=== PATIENT | female | born 1995 | race Native Hawaiian/Other Pacific Islander ===

== ENCOUNTER 2017-02-17 08:53 | Inpatient (IN) | payer MEDICAID ==
[~2017-02-17] VITALS: Ht 180.3 cm; Wt 122.5 kg
[~2017-02-17 08:53] MED LIST: GABA-531 PO; QUET100T PO
[2017-02-17] MEDS ORDERED: ONDA4 PO (09:25)
[2017-02-17 09:59] LABS: BASOPHILS % (AUTO) 0.9 % (0.0-2.0); EOSINOPHILS # (AUTO) 0.06 K/uL (0.00-0.70); EOSINOPHILS % (AUTO) 0.51 % (1.0-6.0); HEMATOCRIT 42.6 % (36-46); HEMOGLOBIN 14.2 g/dL (12.0-16.0); LYMPHOCYTES % (AUTO) 17.4 % (22.0-44.0); MEAN CORPUSCULAR HEMOGLOBIN 28.9 pg (26.0-34.0); MEAN CORPUSCULAR HGB CONC 33.4 G/dL (31.0-37.0); MEAN CORPUSCULAR VOLUME 86 fL (80-100); MONOCYTES # (AUTO) 0.6 K/uL (0.1-1.0); MONOCYTES % (AUTO) 5.5 % (2.0-9.0); NEUTROPHILS # (AUTO) 8.5 K/uL (1.8-7.7); NEUTROPHILS % (AUTO) 75.7 % (40.0-70.0); PLATELET COUNT (AUTO) 426 K/uL (150-450); RED BLOOD CELL COUNT(AUTO) 4.93 MIL/uL (4.00-5.20); RED CELL DISTRIBUTION WIDTH 13.6 % (11.5-14.5); WHITE BLOOD COUNT (AUTO) 11.3 K/uL (4.5-11.0)
[2017-02-17] MEDS ORDERED: DiphenhydrAMINE HCL 50 MG/ML VIAL IM ONE (10:00)
[2017-02-17] MEDS ORDERED: HALOPERIDOL LACTATE 5 MG/ML VIAL IM ONE (10:00)
[2017-02-17] MEDS ORDERED: LORazepam 2 MG/ML VIAL IM ONE (10:00)
[2017-02-17 10:14] LABS: ANION GAP 13 mmol/L (8-16); CALCIUM, TOTAL 9.7 mg/dL (8.8-10.5); CARBON DIOXIDE 26 mmol/L (22-29); CHLORIDE 104 mmol/L (98-107); CREATININE 0.94 mg/dL (0.60-1.30); GLOMERULAR FILTR. RATE CALC > 60 mL/min (>60); POTASSIUM 3.5 mmol/L (3.5-5.1); SODIUM SERUM 143 mmol/L (136-145); UREA NITROGEN, BLOOD 15 mg/dL (7-18)
[2017-02-17 10:19] LABS: ALANINE AMINOTRANSFERASE 27 U/L (12-78); ALBUMIN 4.6 g/dL (3.4-5.0); ASPARTATE AMINOTRANSFERASE 22 U/L (15-37); BILIRUBIN,TOTAL 0.5 mg/dL (0.1-1.0); TOTAL PROTEIN, SERUM 8.9 g/dL (6.4-8.2)
[2017-02-17] MEDS ORDERED: LORazepam 2 MG TABLET PO PRN (10:30)
[2017-02-17] MEDS ORDERED: ZOLPIDEM TARTRATE 10 MG TABLET PO PRN (10:30)
[2017-02-17] MEDS ORDERED: HALOPERIDOL 5 MG TABLET PO PRN (10:30)
[2017-02-17] MEDS ORDERED: INFLUENZA VIRUS VACCINE QVS 2016-17 (3YR+)/PF 60 MCG/0.5 ML SYRINGE IM ONE (16:30)
[2017-02-17 18:02] VITALS: BP 100/59
[2017-02-18 06:10] VITALS: BP 125/64
[2017-02-18] MEDS: ONDANSETRON HCL 4 MG TABLET PO SCH ×2 (08:11→09:00)
[2017-02-18] MEDS ORDERED: GABA-533 PO (12:24)
[2017-02-18] MEDS: QUEtiapine FUMARATE 100 MG TABLET PO SCH ×2 (13:00→16:18)
[2017-02-18] MEDS: GABAPENTIN 400 MG CAPSULE PO SCH ×2 (13:00→16:18)
[2017-02-18 16:11] VITALS: BP 106/60
[2017-02-18] MEDS ORDERED: ACETAMINOPHEN 325 MG TABLET PO PRN (23:15)
[2017-02-18] MEDS ORDERED: IBUPROFEN 400 MG TABLET PO PRN (23:15)
[2017-02-19 08:23] VITALS: BP 125/74
[2017-02-19] MEDS: ONDANSETRON HCL 4 MG TABLET PO SCH (09:00)
[2017-02-19] MEDS: GABAPENTIN 400 MG CAPSULE PO SCH ×3 (09:00→16:35)
[2017-02-19] MEDS: QUEtiapine FUMARATE 100 MG TABLET PO SCH ×3 (09:00→16:35)
[2017-02-19 16:16] VITALS: BP 141/85
[2017-02-20 06:28] VITALS: BP 125/72
[2017-02-20 08:43] LABS: HEMOGLOBIN A1C 5.4 % (4.5-6.2)
[2017-02-20 08:44] VITALS: BP 118/67
[2017-02-20] MEDS: GABAPENTIN 400 MG CAPSULE PO SCH ×3 (09:00→16:06)
[2017-02-20] MEDS: ONDANSETRON HCL 4 MG TABLET PO SCH (09:00)
[2017-02-20 09:01] LABS: CHOL/HDL RATIO 3.4 (3.9-5.7); THYROID STIMULATING HORMONE 0.73 uIU/mL (0.36-3.74)
[2017-02-20] MEDS: QUEtiapine FUMARATE 100 MG TABLET PO SCH ×3 (09:33→16:06)
[2017-02-20 16:19] VITALS: BP 137/63
[2017-02-21 07:27] VITALS: BP 125/62
[2017-02-21 08:10] VITALS: BP 116/79
[2017-02-21] MEDS: GABAPENTIN 400 MG CAPSULE PO SCH ×3 (08:39→16:14)
[2017-02-21] MEDS: QUEtiapine FUMARATE 100 MG TABLET PO SCH ×3 (08:39→16:15)
[2017-02-21] MEDS: ONDANSETRON HCL 4 MG TABLET PO SCH (08:40)
[2017-02-21 16:29] VITALS: BP 134/88
[2017-02-22 00:15] VITALS: BP 111/62
[2017-02-22] MEDS: GABAPENTIN 400 MG CAPSULE PO SCH ×3 (08:14→16:35)
[2017-02-22] MEDS: ONDANSETRON HCL 4 MG TABLET PO SCH (08:14)
[2017-02-22] MEDS: QUEtiapine FUMARATE 100 MG TABLET PO SCH ×3 (08:14→16:35)
[2017-02-22 08:39] VITALS: BP 133/64
[2017-02-22 16:12] VITALS: BP 142/88
[2017-02-23 07:21] VITALS: BP 135/76
[2017-02-23 08:12] VITALS: BP 133/75
[2017-02-23] MEDS: QUEtiapine FUMARATE 100 MG TABLET PO SCH ×3 (08:30→17:09)
[2017-02-23] MEDS: ONDANSETRON HCL 4 MG TABLET PO SCH (08:30)
[2017-02-23] MEDS: GABAPENTIN 400 MG CAPSULE PO SCH ×3 (08:31→17:09)
== END 2017-02-23 18:30 | disposition home or self-care (01) | DRG 750 ==
LOC: EMS 08:54 → EEVIPCON 08:54 → B3A 14:21
PROVIDERS: ADMIT Psychiatry & Neurology Psychiatry; ATTEND Psychiatry & Neurology Psychiatry
DX: F25.9 Schizoaffective disorder, unspecified (principal); E66.01 Morbid (severe) obesity due to excess calories; F32.9 Major depressive disorder, single episode, unspecified; F15.10 Other stimulant abuse, uncomplicated; F17.210 Nicotine dependence, cigarettes, uncomplicated; F22 Delusional disorders; K59.00 Constipation, unspecified; Z68.37 Body mass index [BMI] 37.0-37.9, adult; Z71.6 Tobacco abuse counseling; Z91.5 Personal history of self-harm; Z78.1 Physical restraint status; Z79.899 Other long term (current) drug therapy; Z72.89 Other problems related to lifestyle; Z71.41 Alcohol abuse counseling and surveillance of alcoholic; Z28.21 Immunization not carried out because of patient refusal
CPT/HCPCS: 83036; 84443; 96372; 99285; G0480; J1200; J1630; J2060; Q0162

== ENCOUNTER 2018-03-22 23:38 | Emergency (ER) | payer MEDICAID ==
[~2018-03-22] VITALS: Ht 175.3 cm; Wt 136.4 kg
[~2018-03-22 23:38] MED LIST changes: -GABA-531 PO; +GABA-533 PO
[2018-03-22 23:42] VITALS: BP 133/95
== END 2018-03-23 02:43 | disposition left against medical advice (07) ==
LOC: EDUNIT# 23:38 → EMS 23:39
DX: S51.811A Laceration without foreign body of right forearm, initial encounter (principal); W25.XXXA Contact with sharp glass, initial encounter; Y93.89 Activity, other specified; Y92.89 Other specified places as the place of occurrence of the external cause; Y99.8 Other external cause status; Z53.21 Procedure and treatment not carried out due to patient leaving prior to being seen by health care provider

== ENCOUNTER 2018-03-25 16:25 | Inpatient (IN) | payer MEDICAID ==
[~2018-03-25] VITALS: Ht 170.2 cm; Wt 136.4 kg
[2018-03-25] MEDS ORDERED: PERTUSS(ACELL),DIPH,TET VAC/PF 0.5 ML VIAL IM ONE (17:30)
[2018-03-25 17:51] LABS: BASOPHILS % (AUTO) 0.4 % (0.0-2.0); EOSINOPHILS % (AUTO) 0.5 % (1.0-6.0); HEMATOCRIT 39.7 % (36-46); HEMOGLOBIN 13.7 g/dL (12.0-16.0); LYMPHOCYTES # (AUTO) 2.2 K/uL (1.0-4.8); LYMPHOCYTES % (AUTO) 20.8 % (22.0-44.0); MEAN CORPUSCULAR HEMOGLOBIN 29.8 pg (26.0-34.0); MEAN CORPUSCULAR HGB CONC 34.4 G/dL (31.0-37.0); MEAN CORPUSCULAR VOLUME 87 fL (80-100); MONOCYTES # (AUTO) 0.7 K/uL (0.1-1.0); MONOCYTES % (AUTO) 6.6 % (2.0-9.0); NEUTROPHILS # (AUTO) 7.6 K/uL (1.8-7.7); NEUTROPHILS % (AUTO) 71.7 % (40.0-70.0); PLATELET COUNT (AUTO) 371 K/uL (150-450); RED BLOOD CELL COUNT(AUTO) 4.59 MIL/uL (4.00-5.20)
[2018-03-25 18:02] LABS: ANION GAP 7 mmol/L (8-16); CALCIUM, TOTAL 9.5 mg/dL (8.8-10.5); CARBON DIOXIDE 27 mmol/L (22-29); CHLORIDE 102 mmol/L (98-107); CREATININE 0.66 mg/dL (0.60-1.30); GLOMERULAR FILTR. RATE CALC > 60 mL/min (>60); GLUCOSE,RANDOM 85 mg/dL (70-110); POTASSIUM 3.6 mmol/L (3.5-5.1); SODIUM SERUM 136 mmol/L (136-145); UREA NITROGEN, BLOOD 12 mg/dL (7-18)
[2018-03-25 18:09] LABS: ALANINE AMINOTRANSFERASE 41 U/L (12-78); ALBUMIN 4.1 g/dL (3.4-5.0); ALKALINE PHOSPHATASE 68 U/L (46-116); ASPARTATE AMINOTRANSFERASE 24 U/L (15-37); BILIRUBIN,TOTAL 0.5 mg/dL (0.1-1.0)
[2018-03-25] MEDS ORDERED: DiphenhydrAMINE HCL 50 MG/ML VIAL IM ONE (19:00)
[2018-03-25] MEDS ORDERED: LORazepam 2 MG/ML VIAL IM ONE (19:00)
[2018-03-25] MEDS ORDERED: HALOPERIDOL LACTATE 5 MG/ML VIAL IM ONE (19:00)
[2018-03-25] MEDS ORDERED: HALOPERIDOL 5 MG TABLET PO PRN (19:30)
[2018-03-25 21:00] VITALS: BP 129/75
[2018-03-25 21:12] LABS: CHOL/HDL RATIO 2.4 (3.9-5.7); CHOLESTEROL 153 mg/dL (131-200); FREE T4 (FREE THYROXINE) 1.09 ng/dL (0.76-1.46); HDL CHOLESTEROL 63 mg/dL (40-60); LDL CHOL (CALC.) 81 mg/dL (0-130); THYROID STIMULATING HORMONE 1.39 uIU/mL (0.36-3.74); TRIGLYCERIDES 43 mg/dL (15-150)
[2018-03-26 06:42] VITALS: BP 120/73
[2018-03-26] MEDS ORDERED: CloNIDine HCL 0.1 MG TABLET PO PRN (08:15)
[2018-03-26] MEDS ORDERED: LOPERAMIDE HCL 2 MG CAPSULE PO PRN (08:15)
[2018-03-26] MEDS ORDERED: IBUPROFEN 600 MG TABLET PO PRN (08:15)
[2018-03-26] MEDS ORDERED: BENZOCAINE/MENTHOL LOZENGE MM PRN (08:15)
[2018-03-26] MEDS ORDERED: MAGNESIUM HYDROXIDE SUSPENSION 30 ML UDCUP PO PRN (08:15)
[2018-03-26] MEDS ORDERED: ONDANSETRON HCL 4 MG TABLET PO PRN (08:15)
[2018-03-26] MEDS ORDERED: ALBUTEROL SULFATE HFA 90 MCG/PUFF 8 GM INHALER IH PRN (08:15)
[2018-03-26] MEDS ORDERED: ACETAMINOPHEN 325 MG TABLET PO PRN (08:15)
[2018-03-26] MEDS ORDERED: MAG HYDROX/AL HYDROX/SIMETH ES 30 ML SUSPENSION UDCUP PO PRN (08:15)
[2018-03-26] MEDS ORDERED: PETROLATUM,WHITE 71 GM JELLY TP PRN (08:15)
[2018-03-26 08:23] VITALS: BP 127/66
[2018-03-26] MEDS: BACITRACIN 28.4 GM OINTMENT TP SCH ×2 (09:22→17:01)
[2018-03-26 16:18] VITALS: BP 110/61
[2018-03-26] MEDS: LORazepam 2 MG TABLET PO PRN (17:00)
[2018-03-26] MEDS: QUEtiapine FUMARATE 200 MG TABLET PO SCH (21:00)
[2018-03-27] MEDS: ZOLPIDEM TARTRATE 10 MG TABLET PO PRN (00:12)
[2018-03-27 00:20] VITALS: BP 125/80
[2018-03-27] MEDS: BACITRACIN 28.4 GM OINTMENT TP SCH ×2 (09:10→17:07)
[2018-03-27] MEDS: QUEtiapine FUMARATE 200 MG TABLET PO SCH ×2 (09:13→20:45)
[2018-03-27 16:12] VITALS: BP 119/75
[2018-03-28 06:57] VITALS: BP 126/78
[2018-03-28] MEDS: BACITRACIN 28.4 GM OINTMENT TP SCH ×2 (08:34→17:00)
[2018-03-28] MEDS: QUEtiapine FUMARATE 200 MG TABLET PO SCH ×2 (08:34→21:00)
[2018-03-28] MEDS: LORazepam 2 MG TABLET PO PRN (08:57)
[2018-03-28 17:55] VITALS: BP 137/83
[2018-03-29 01:53] VITALS: BP 131/74
[2018-03-29 08:35] VITALS: BP 124/68
[2018-03-29] MEDS: BACITRACIN 28.4 GM OINTMENT TP SCH ×2 (08:52→16:25)
[2018-03-29] MEDS: QUEtiapine FUMARATE 200 MG TABLET PO SCH ×2 (08:55→20:42)
[2018-03-29 16:14] VITALS: BP 118/64
[2018-03-29] MEDS: ZOLPIDEM TARTRATE 10 MG TABLET PO PRN (21:06)
[2018-03-30] MEDS: BACITRACIN 28.4 GM OINTMENT TP SCH ×2 (09:00→16:21)
[2018-03-30] MEDS: QUEtiapine FUMARATE 200 MG TABLET PO SCH ×2 (09:00→20:57)
[2018-03-30] MEDS ORDERED: HALOPERIDOL LACTATE 5 MG/ML VIAL ONE (14:14)
[2018-03-30] MEDS ORDERED: DiphenhydrAMINE HCL 50 MG/ML VIAL ONE (14:14)
[2018-03-30] MEDS ORDERED: LORazepam 2 MG/ML VIAL ONE (14:14)
[2018-03-30] MEDS ORDERED: HALOPERIDOL LACTATE 5 MG/ML VIAL IM ONE (14:15)
[2018-03-30] MEDS ORDERED: DiphenhydrAMINE HCL 50 MG/ML VIAL IM ONE (14:15)
[2018-03-30] MEDS ORDERED: LORazepam 2 MG/ML VIAL IM ONE (14:15)
[2018-03-31 06:29] VITALS: BP 116/63
[2018-03-31] MEDS: QUEtiapine FUMARATE 200 MG TABLET PO SCH (09:53)
[2018-03-31] MEDS: BACITRACIN 28.4 GM OINTMENT TP SCH (09:55)
[2018-03-31] MEDS ORDERED: QUET200T PO (17:07)
[2018-03-31] MEDS ORDERED: BACI30OI6 TP (17:10)
== END 2018-03-31 18:05 | disposition left against medical advice (07) | DRG 750 ==
LOC: EMS 16:26 → B3A 18:55
DX: F25.1 Schizoaffective disorder, depressive type (principal); Z68.42 Body mass index [BMI] 45.0-49.9, adult; E66.01 Morbid (severe) obesity due to excess calories; F15.10 Other stimulant abuse, uncomplicated; G47.00 Insomnia, unspecified; S51.811A Laceration without foreign body of right forearm, initial encounter; F17.210 Nicotine dependence, cigarettes, uncomplicated; W22.09XA Striking against other stationary object, initial encounter; F41.9 Anxiety disorder, unspecified; R03.0 Elevated blood-pressure reading, without diagnosis of hypertension; Z79.899 Other long term (current) drug therapy; Z91.5 Personal history of self-harm
CPT/HCPCS: 84439; 84443; 90471; 90715; 96372; 99285; G0480; J1200; J1630; J2060

== ENCOUNTER 2019-08-09 18:06 | Emergency (ER) | payer MEDICAID ==
[~2019-08-09 18:06] MED LIST changes: +BACI30OI6 TP; -GABA-533 PO; -QUET100T PO; +QUET200T PO
== END 2019-08-09 19:08 | disposition left against medical advice (07) ==
LOC: EMS 18:08
DX: Z00.00 Encounter for general adult medical examination without abnormal findings (principal); Z53.21 Procedure and treatment not carried out due to patient leaving prior to being seen by health care provider

== ENCOUNTER 2019-08-09 20:13 | Inpatient (IN) | payer MEDICAID, OTHER ==
[~2019-08-09] VITALS: Ht 180.3 cm; Wt 122.7 kg
[2019-08-09] MEDS ORDERED: HALOPERIDOL 5 MG TABLET PO ONE (21:15)
[2019-08-09] MEDS ORDERED: LORazepam 1 MG TABLET PO ONE (21:15)
[2019-08-09 21:22] LABS: BASOPHILS % (AUTO) 1.1 % (0.0-2.0); EOSINOPHILS % (AUTO) 1.9 % (1.0-6.0); HEMATOCRIT 34.4 % (36-46); HEMOGLOBIN 10.8 g/dL (12.0-16.0); LYMPHOCYTES # (AUTO) 2.6 K/uL (1.0-4.8); LYMPHOCYTES % (AUTO) 30.4 % (22.0-44.0); MEAN CORPUSCULAR HGB CONC 31.3 G/dL (31.0-37.0); MEAN CORPUSCULAR VOLUME 83 fL (80-100); MONOCYTES # (AUTO) 0.7 K/uL (0.1-1.0); MONOCYTES % (AUTO) 8.3 % (2.0-9.0); NEUTROPHILS % (AUTO) 58.3 % (40.0-70.0); PLATELET COUNT (AUTO) 442 K/uL (150-450); RED BLOOD CELL COUNT(AUTO) 4.14 MIL/uL (4.00-5.20); RED CELL DISTRIBUTION WIDTH 15.1 % (11.5-14.5)
[2019-08-09 21:37] LABS: ANION GAP 9 mmol/L (8-16); CALCIUM, TOTAL 9.5 mg/dL (8.8-10.5); CARBON DIOXIDE 27 mmol/L (22-29); CHLORIDE 106 mmol/L (98-107); CREATININE 1.02 mg/dL (0.60-1.30); GLOMERULAR FILTR. RATE CALC > 60 mL/min (>60); GLUCOSE,RANDOM 105 mg/dL (70-110); POTASSIUM 3.2 mmol/L (3.5-5.1); SODIUM SERUM 142 mmol/L (136-145); UREA NITROGEN, BLOOD 5 mg/dL (7-18)
[2019-08-09 21:44] LABS: ALANINE AMINOTRANSFERASE 35 U/L (12-78); ALBUMIN 4.1 g/dL (3.4-5.0); ALKALINE PHOSPHATASE 65 U/L (46-116); ASPARTATE AMINOTRANSFERASE 46 U/L (15-37); BILIRUBIN,TOTAL 0.3 mg/dL (0.1-1.0); HCG,QUANTITATIVE < 1 mIU/mL (0-6); TOTAL PROTEIN, SERUM 7.5 g/dL (6.4-8.2)
[2019-08-09] MEDS ORDERED: POTASSIUM CHLORIDE 20 MEQ ER TABLET PO ONE (22:15)
[2019-08-09] MEDS ORDERED: HALOPERIDOL 5 MG TABLET PO PRN (22:30)
[2019-08-09] MEDS: ZOLPIDEM TARTRATE 10 MG TABLET PO PRN (23:05)
[2019-08-09 23:30] LABS: AMPHET/METH SCREEN,URINE POSITIVE (NEGATIVE); BARBITURATE SCREEN, URINE NEGATIVE (NEGATIVE); BENZODIAZEPINES SCREEN,URINE NEGATIVE (NEGATIVE); CANNABINOID SCREEN,URINE NEGATIVE (NEGATIVE); COCAINE SCREEN,URINE NEGATIVE (NEGATIVE); METHADONE SCREEN, URINE NEGATIVE (NEGATIVE); OPIATE SCREEN,URINE NEGATIVE (NEGATIVE)
[2019-08-09 23:31] LABS: PHENCYCLIDINE SCREEN,URINE NEGATIVE (NEGATIVE)
[2019-08-10 07:02] VITALS: BP 123/75
[2019-08-10] MEDS ORDERED: POTASSIUM CHLORIDE 20 MEQ ER TABLET PO ONE (09:15)
[2019-08-10] MEDS: QUEtiapine FUMARATE 200 MG TABLET PO SCH ×2 (10:00→20:07)
[2019-08-10] MEDS ORDERED: MAG HYDROX/AL HYDROX/SIMETH ES 30 ML SUSPENSION UDCUP PO PRN (15:45)
[2019-08-10] MEDS ORDERED: PETROLATUM,WHITE 28 GM JELLY TP PRN (15:45)
[2019-08-10] MEDS ORDERED: LOPERAMIDE HCL 2 MG CAPSULE PO PRN (15:45)
[2019-08-10] MEDS ORDERED: IBUPROFEN 400 MG TABLET PO PRN (15:45)
[2019-08-10] MEDS ORDERED: CloNIDine HCL 0.1 MG TABLET PO PRN (15:45)
[2019-08-10] MEDS ORDERED: MAGNESIUM HYDROXIDE SUSPENSION 30 ML UDCUP PO PRN (15:45)
[2019-08-10] MEDS ORDERED: NICOTINE 14 MG/24 HOUR PATCH TD PRN (15:45)
[2019-08-10] MEDS ORDERED: ACETAMINOPHEN 325 MG TABLET PO PRN (15:45)
[2019-08-10] MEDS ORDERED: GuaiFENesin/D-METHORPHAN [SUGAR-FREE] 200-20MG/10 ML SYRUP UDCUP PO PRN (15:45)
[2019-08-10] MEDS ORDERED: ONDANSETRON HCL 4 MG TABLET PO PRN (15:45)
[2019-08-10] MEDS ORDERED: DOCUSATE SODIUM 100 MG CAPSULE PO PRN (15:45)
[2019-08-10] MEDS ORDERED: ALBUTEROL SULFATE HFA 90 MCG/PUFF 8 GM INHALER IH PRN (15:45)
[2019-08-10 16:41] VITALS: BP 126/70
[2019-08-11 07:06] VITALS: BP 128/71
[2019-08-11] MEDS: QUEtiapine FUMARATE 200 MG TABLET PO SCH ×2 (09:00→20:19)
[2019-08-11] MEDS: LORazepam 2 MG TABLET PO PRN (13:54)
[2019-08-11 16:00] VITALS: BP 140/90
[2019-08-12 05:56] VITALS: BP 130/75
[2019-08-12] MEDS: QUEtiapine FUMARATE 200 MG TABLET PO SCH ×2 (09:00→20:31)
[2019-08-12 16:00] VITALS: BP 144/88
[2019-08-13 06:08] VITALS: BP 139/92
[2019-08-13 08:13] VITALS: BP 121/66
[2019-08-13] MEDS: QUEtiapine FUMARATE 200 MG TABLET PO SCH ×2 (09:02→20:08)
[2019-08-13] MEDS: LORazepam 2 MG TABLET PO PRN (10:58)
[2019-08-13 16:03] VITALS: BP 119/86
[2019-08-14 06:42] VITALS: BP 105/69
[2019-08-14 08:05] VITALS: BP 118/73
[2019-08-14] MEDS: QUEtiapine FUMARATE 200 MG TABLET PO SCH ×2 (09:39→20:19)
[2019-08-14] MEDS: LORazepam 2 MG TABLET PO PRN ×2 (11:49→15:59)
[2019-08-15] MEDS: QUEtiapine FUMARATE 200 MG TABLET PO SCH ×3 (08:19→20:01)
[2019-08-15] MEDS: LORazepam 2 MG TABLET PO PRN (11:32)
[2019-08-15 16:22] VITALS: BP 119/83
[2019-08-16 08:32] VITALS: BP 103/65
[2019-08-16] MEDS: QUEtiapine FUMARATE 200 MG TABLET PO SCH ×2 (09:03→20:23)
[2019-08-16 16:35] VITALS: BP 123/68
[2019-08-16] MEDS: ZOLPIDEM TARTRATE 10 MG TABLET PO PRN (20:23)
[2019-08-17 06:39] VITALS: BP 118/70
[2019-08-17 08:10] VITALS: BP 121/74
[2019-08-17] MEDS: QUEtiapine FUMARATE 200 MG TABLET PO SCH (08:51)
== END 2019-08-17 13:28 | disposition home or self-care (01) | DRG 750 ==
LOC: EMS 20:14 → B3A 08-10 00:37
DX: F25.1 Schizoaffective disorder, depressive type (principal); R74.0 Nonspecific elevation of levels of transaminase and lactic acid dehydrogenase [LDH]; D64.9 Anemia, unspecified; E87.6 Hypokalemia; F15.10 Other stimulant abuse, uncomplicated; F17.210 Nicotine dependence, cigarettes, uncomplicated; F41.9 Anxiety disorder, unspecified; Z91.14 Patient's other noncompliance with medication regimen; Z91.5 Personal history of self-harm; Z79.899 Other long term (current) drug therapy
CPT/HCPCS: 84132; G0480

== ENCOUNTER 2019-11-16 07:36 | Inpatient (IN) | payer MEDICAID ==
[~2019-11-16] VITALS: Ht 175.3 cm; Wt 132.0 kg
[~2019-11-16 07:36] MED LIST changes: -BACI30OI6 TP
[2019-11-16 08:23] LABS: BASOPHILS % (AUTO) 0.5 % (0.0-2.0); EOSINOPHILS % (AUTO) 1.6 % (1.0-6.0); HEMATOCRIT 33.6 % (36-46); HEMOGLOBIN 11.1 g/dL (12.0-16.0); LYMPHOCYTES # (AUTO) 1.6 K/uL (1.0-4.8); LYMPHOCYTES % (AUTO) 20.6 % (22.0-44.0); MEAN CORPUSCULAR HEMOGLOBIN 26.8 pg (26.0-34.0); MEAN CORPUSCULAR VOLUME 81 fL (80-100); MONOCYTES # (AUTO) 0.7 K/uL (0.1-1.0); MONOCYTES % (AUTO) 9.7 % (2.0-9.0); NEUTROPHILS # (AUTO) 5.1 K/uL (1.8-7.7); NEUTROPHILS % (AUTO) 67.6 % (40.0-70.0); PLATELET COUNT (AUTO) 453 K/uL (150-450); RED BLOOD CELL COUNT(AUTO) 4.12 MIL/uL (4.00-5.20); RED CELL DISTRIBUTION WIDTH 16.4 % (11.5-14.5)
[2019-11-16 08:36] LABS: ANION GAP 9 mmol/L (8-16); CALCIUM, TOTAL 9.2 mg/dL (8.8-10.5); CARBON DIOXIDE 27 mmol/L (22-29); CHLORIDE 99 mmol/L (98-107); CREATININE 0.89 mg/dL (0.60-1.30); GLOMERULAR FILTR. RATE CALC > 60 mL/min (>60); GLUCOSE,RANDOM 96 mg/dL (70-110); POTASSIUM 3.1 mmol/L (3.5-5.1); SODIUM SERUM 135 mmol/L (136-145); UREA NITROGEN, BLOOD 6 mg/dL (7-18)
[2019-11-16 08:48] LABS: ALANINE AMINOTRANSFERASE 57 U/L (12-78); ALBUMIN 4.1 g/dL (3.4-5.0); ALKALINE PHOSPHATASE 68 U/L (46-116); ASPARTATE AMINOTRANSFERASE 96 U/L (15-37); BILIRUBIN,TOTAL 0.7 mg/dL (0.1-1.0); HCG,QUANTITATIVE < 1 mIU/mL (0-6); TOTAL PROTEIN, SERUM 8.1 g/dL (6.4-8.2)
[2019-11-16] MEDS ORDERED: POTASSIUM CHLORIDE 20 MEQ ER TABLET PO ONE (09:00)
[2019-11-16] MEDS ORDERED: HALOPERIDOL 5 MG TABLET PO ONE (09:45)
[2019-11-16] MEDS ORDERED: LORazepam 2 MG TABLET PO ONE (09:45)
[2019-11-16] MEDS ORDERED: HALOPERIDOL 5 MG TABLET PO PRN (11:00)
[2019-11-16] MEDS ORDERED: ZOLPIDEM TARTRATE 10 MG TABLET PO PRN (11:00)
[2019-11-16] MEDS ORDERED: HALOPERIDOL LACTATE 5 MG/ML VIAL IM ONE (13:15)
[2019-11-16] MEDS ORDERED: LORazepam 2 MG/ML VIAL IM ONE (13:15)
[2019-11-16] MEDS ORDERED: DiphenhydrAMINE HCL 50 MG/ML VIAL IM ONE (13:15)
[2019-11-16] MEDS ORDERED: ONDANSETRON HCL 4 MG TABLET PO PRN (14:00)
[2019-11-16] MEDS ORDERED: DOCUSATE SODIUM 100 MG CAPSULE PO PRN (14:00)
[2019-11-16] MEDS ORDERED: PETROLATUM,WHITE 28 GM JELLY TP PRN (14:00)
[2019-11-16] MEDS ORDERED: ALBUTEROL SULFATE HFA 90 MCG/PUFF 8 GM INHALER IH PRN (14:00)
[2019-11-16] MEDS ORDERED: ACETAMINOPHEN 325 MG TABLET PO PRN (14:00)
[2019-11-16] MEDS ORDERED: MAG HYDROX/AL HYDROX/SIMETH ES 30 ML SUSPENSION UDCUP PO PRN (14:00)
[2019-11-16] MEDS ORDERED: NICOTINE 14 MG/24 HOUR PATCH TD PRN (14:00)
[2019-11-16] MEDS ORDERED: MAGNESIUM HYDROXIDE SUSPENSION 30 ML UDCUP PO PRN (14:00)
[2019-11-16] MEDS ORDERED: GuaiFENesin/D-METHORPHAN [SUGAR-FREE] 200-20MG/10 ML SYRUP UDCUP PO PRN (14:00)
[2019-11-16] MEDS ORDERED: CloNIDine HCL 0.1 MG TABLET PO PRN (14:00)
[2019-11-16] MEDS ORDERED: IBUPROFEN 400 MG TABLET PO PRN (14:00)
[2019-11-16] MEDS ORDERED: LOPERAMIDE HCL 2 MG CAPSULE PO PRN (14:00)
[2019-11-16 16:20] VITALS: BP 109/64
[2019-11-17] MEDS ORDERED: INFLUENZA VIRUS VACCINE QVS 2019-20 (3YR+)/PF 60 MCG/0.5 ML SYRINGE IM ONE (00:45)
[2019-11-17 05:42] VITALS: BP 131/74
[2019-11-17 08:13] VITALS: BP 122/75
[2019-11-17] MEDS: ARIPiprazole 15 MG TABLET PO SCH ×2 (12:45→13:24)
[2019-11-17 16:53] VITALS: BP 116/81
[2019-11-17] MEDS: LORazepam 2 MG TABLET PO PRN (20:03)
[2019-11-17] MEDS ORDERED: MIRTAZAPINE 15 MG TABLET PO SCH (21:00)
[2019-11-18 06:42] VITALS: BP 136/62
[2019-11-18 08:32] VITALS: BP 126/72
[2019-11-18] MEDS: ARIPiprazole 5 MG TABLET PO SCH (09:12)
[2019-11-18 16:58] VITALS: BP 117/64
[2019-11-18] MEDS: LORazepam 2 MG TABLET PO PRN (17:32)
[2019-11-18] MEDS: MIRTAZAPINE 30 MG TABLET PO SCH (20:01)
[2019-11-19 08:06] VITALS: BP 118/79
[2019-11-19] MEDS: ARIPiprazole 5 MG TABLET PO SCH (08:21)
[2019-11-19] MEDS: LORazepam 2 MG TABLET PO PRN (08:41)
[2019-11-19 16:01] VITALS: BP 116/66
[2019-11-19] MEDS: MIRTAZAPINE 30 MG TABLET PO SCH (20:14)
[2019-11-20 08:12] VITALS: BP 122/73
[2019-11-20] MEDS: ARIPiprazole 5 MG TABLET PO SCH (09:00)
[2019-11-20 17:01] VITALS: BP 114/80
[2019-11-20] MEDS: MIRTAZAPINE 30 MG TABLET PO SCH (20:52)
[2019-11-21 05:12] VITALS: BP 112/66
[2019-11-21 07:35] LABS: ANION GAP 7 mmol/L (8-16); CARBON DIOXIDE 27 mmol/L (22-29); CHLORIDE 102 mmol/L (98-107); CREATININE 0.64 mg/dL (0.60-1.30); GLOMERULAR FILTR. RATE CALC > 60 mL/min (>60); GLUCOSE,RANDOM 97 mg/dL (70-110); POTASSIUM 4.2 mmol/L (3.5-5.1); SODIUM SERUM 136 mmol/L (136-145); THYROID STIMULATING HORMONE 0.78 uIU/mL (0.36-3.74)
[2019-11-21 07:45] LABS: UREA NITROGEN, BLOOD 15 mg/dL (7-18)
[2019-11-21 08:12] VITALS: BP 119/72
[2019-11-21] MEDS: ARIPiprazole 5 MG TABLET PO SCH (09:35)
[2019-11-21 16:43] VITALS: BP 127/66
[2019-11-21] MEDS: MIRTAZAPINE 30 MG TABLET PO SCH (20:21)
[2019-11-22 06:25] VITALS: BP 107/63
[2019-11-22] MEDS: ARIPiprazole 5 MG TABLET PO SCH (08:03)
[2019-11-22 08:10] VITALS: BP 122/68
[2019-11-22] MEDS ORDERED: ARIP5TAB8 PO (15:44)
[2019-11-22] MEDS ORDERED: MIRT30 PO (15:44)
[2019-11-22 16:18] VITALS: BP 120/77
== END 2019-11-22 17:35 | disposition home or self-care (01) | DRG 751 ==
LOC: EMS 07:38 → B3A 13:05 → B2S 11-22 12:08
PROVIDERS: ADMIT Psychiatry & Neurology Psychiatry; ATTEND Psychiatry & Neurology Psychiatry
DX: F33.2 Major depressive disorder, recurrent severe without psychotic features (principal); R45.851 Suicidal ideations; Z91.14 Patient's other noncompliance with medication regimen; Z59.0 Homelessness; D64.9 Anemia, unspecified; E87.6 Hypokalemia; F15.90 Other stimulant use, unspecified, uncomplicated; F17.210 Nicotine dependence, cigarettes, uncomplicated; E66.9 Obesity, unspecified; F41.9 Anxiety disorder, unspecified; R45.87 Impulsiveness; Z28.29 Immunization not carried out because of patient decision for other reason; Z79.899 Other long term (current) drug therapy
CPT/HCPCS: 84443; G0480; J1200; J1630; J2060